=== PATIENT | male | born 1995 | race Caucasian/White ===

== ENCOUNTER 2017-09-01 11:54 | Emergency (ER) | payer SELFPAY ==
[2017-09-01 12:35] VITALS: BP 106/65
--- NOTE | 2017-09-01 12:51 | UC ---
Throat Pain/Nasal Dick HPI - HPI Summary HPI Summary: 22 y/o male presents to the urgent care c/o sinus and chest congestion for the past 2 weeks. Pt reports symptoms started w/ clear nasal discharge and on and off GARIBAY, but now it has worsen since he has yellowish nasal discharge w/ productive cough and yellowish phlegm. He sinus pain and GARIBAY is 4/10. Pt feels fatigue and has been using Afrin nasal spray w/o any improvement. Pt denies fever, but feels some chills at times. SOB, chest pain,abdominal pain, N/V/D - History of Current Complaint Chief Complaint: UCRespiratory Stated Complaint: SINUS COMPLAINT Time Seen by Provider: 09/01/17 12:48 Hx Obtained From: Patient Onset/Duration: Gradual Onset, Lasting Weeks - 2 weeks, Still Present, Worse Since - las 2 days Severity: Moderate Pain Intensity: 4 - sinus pain Pain Scale Used: 0-10 Numeric Cough: Sputum Appears - yellowish Associated Signs & Symptoms: Positive: Sinus Discomfort, Nasal Discharge. Negative: Wheezing, Fever - Epiglottits Risk Factors Epiglottis Risk Factors: Negative - Allergies/Home Medications Allergies/Adverse Reactions: Allergies Allergy/AdvReac Type Severity Reaction Status Date / Time No Known Allergies Allergy Verified 09/01/17 12:36 PMH/Surg Hx/FS Hx/Imm Hx Previously Healthy: Yes - Pt denies PMHX - Surgical History Surgical History: None - Family History Known Family History: Positive: None - Pt denies FMHX - Social History Occupation: Student Lives: With Family Alcohol Use: None Substance Use Type: None Smoking Status (MU): Former Smoker Type: Cigarettes Amount Used/How Often: 4 CIGS A DAY Household Exposure Type: Cigarettes - Immunization History Vaccination Up to Date: Yes Review of Systems Constitutional: Chills, Fatigue Skin: Negative Eyes: Negative ENT: Nasal Discharge, Sinus Congestion, Sinus Pain/Tenderness Respiratory: Cough - productive Cardiovascular: Negative Gastrointestinal: Negative Genitourinary: Negative Motor: Negative Neurovascular: Negative Musculoskeletal: Negative Neurological: Headache - on and off Psychological: Negative Is Patient Immunocompromised?: No All Other Systems Reviewed And Are Negative: Yes Physical Exam - Summary Physical Exam Summary: Physical exam: Vitals: reviewed General: Well developed, well-nourished male patient with NAD. Head and face: Normocephalic and atraumatic, Positive tenderness over the frontal and maxillary sinuses.. Eyes: PERRLA, EOMI x 2. Normal conjunctiva. No eye discharge. ENT: Ears and TM with normal limits. Nose: edematous and erythematous nasal mucosa with with yellowish discharge and erythematous mucosa. Pharynx with erythema, no exudate. Neck: Supple, no JVD, no carotid bruits and no lymphadenopathy. Lungs: Positive breath sound. B/L posterior upper lungs w/ scattered rhonchi, no crackles, rales or wheezes. CVS: RRR, S1 and S2 present no murmurs or gallops appreciated. Abdomen: soft nontender with positive bowel sounds. Extremities: no edema noted. Neuro: WNL. Skin: warm and dry Triage Information Reviewed: Yes Vital Signs: Initial Vital Signs Temp 98.1 F 09/01/17 12:28 Pulse 61 09/01/17 12:28 Resp 14 09/01/17 12:28 BP 106/65 09/01/17 12:28 Pulse Ox 100 09/01/17 12:28 Throat Pain/Nasal Course/Dx - Course Course Of Treatment: 22 y/o male presents to the urgent care c/o sinus and chest congestion for the past 2 weeks. Pt reports symptoms started w/ clear nasal discharge and on and off GARIBAY, but now it has worsen since he has yellowish nasal discharge w/ productive cough and yellowish phlegm. He sinus pain and GARIBAY is 4/10. Pt feels fatigue and has been using Afrin nasal spray w/o any improvement. Pt denies fever, but feels some chills at times. SOB, chest pain, abdominal pain, N/V/D. Hx obtained. Pt Positive breath sound. B/L posterior upper lungs w/ scattered rhonchi, no crackles, rales or wheezes on examination. Pt with Acute bronchitis on examination. Pt Rx Z-khris PO and advised to stop Afrin nasal drops and use Flonase nasal spray and saline drops to alleviate sinusitis. Advised to continue taking Mucinex PO or Delsym PO to alleviate cough. Pt advised to increase fluid intake and eat well. if not improvement or worsening of symptoms to return to the urgent care or f/u with PCP for further management. pt understood and agreed with plan of care - Differential Dx/Diagnosis Differential Diagnosis/HQI/PQRI: Influenza, Pharyngitis, URI, Other - bronchitis , pneumonia Provider Diagnoses: 1- Acute bronchitis. 2-Acute bacterial sinusitis Discharge - Sign-Out/Discharge Documenting (check all that apply): Patient Departure - D/c home - Discharge Plan Condition: Stable Disposition: HOME Prescriptions: Azithromyxin KHRIS (NF) [Z-Khris (Zithromax) 250 mg tabs #6] 2 tab PO .TODAY, THEN 1 DAILY #6 tab Fluticasone NASAL SPRAY 50MCG* [Flonase NASAL SPRAY 50MCG*] 2 spray BOTH NARES DAILY #1 btl Patient Education Materials: Sinusitis (ED), Acute Bronchitis (ED) Referrals: Luis Fair MD [Primary Care Provider] - 3 Days Additional Instructions: 1-Please take full course of antibiotic to avoid resistance. 2-Take Mucinex or Delsym OTC to alleviate cough. Increase fluid intake, rest and eat well. 3- Stop Afrin nasal spray and Use Flonase nasal spray as directed and use saline drops as directed to clear sinuses. 3- If symptoms do not improve or worsen or your develop SOB with fever and severe wheezing please go immediately to the ER further evaluation and treatment. 4- F/u with your PCP in 3 days if not improvement for further management - Billing Disposition and Condition Condition: STABLE Disposition: Home
== END 2017-09-01 13:13 | disposition home or self-care (01) ==
LOC: UCCORT 11:54
DX: J01.90 Acute sinusitis, unspecified (principal); B96.89 Other specified bacterial agents as the cause of diseases classified elsewhere; Z87.891 Personal history of nicotine dependence; J20.9 Acute bronchitis, unspecified
CPT/HCPCS: 99212; G0463